=== PATIENT | male | born 1990 | race Two or more races ===

== ENCOUNTER 2019-05-20 18:13 | Emergency (ER) | payer OTHER ==
[~2019-05-20] VITALS: Ht 180.3 cm; Wt 97.5 kg
[2019-05-20 18:17] VITALS: BP 127/80
== END 2019-05-20 20:25 | disposition home or self-care (01) ==
LOC: ER 18:13
DX: S83.92XA Sprain of unspecified site of left knee, initial encounter (principal); M25.462 Effusion, left knee; Y08.89XA Assault by other specified means, initial encounter; Y93.89 Activity, other specified; Y92.89 Other specified places as the place of occurrence of the external cause; Y99.8 Other external cause status
CPT/HCPCS: 73562